=== PATIENT | male | born 1980 | race Caucasian/White ===

== ENCOUNTER 2019-12-11 01:07 | Observation (INO) | payer OTHER, SELFPAY ==
[2019-12-11] VITALS (15 sets, daily range): BP systolic 101–135; BP diastolic 71–99; PULSE 97–119; RESP 12–28; TEMP 36.5–36.7; O2SAT 95–100; BMI 24.5
--- NOTE | 2019-12-11 | ECHO_ITS ---
Patient Info Name: Bradley Velazquez Age: 39 years : 1980 Gender: Male Ht: 70 in Wt: 170 lbs BSA: 1.96 m2 HR: 115 bpm BP: 138 / 99 mmHg Heart Rhythm: Tachycardia, Sinus Rhythm Technical Quality: Excellent Exam Date: 12/11/2019 2:54 PM Exam Location: [facility] Card Pulmonary Patient Status: Inpatient Admit Date: 12/11/2019 Staff Ordering Physician: Irish Lantigua PA-C Methods Specialist Engineer: Mark Jensen RDCS Attending Provider: Irish Lantigua PA-C Referring Physician: Rhina LIZ; Exam Type: CA echo doppler color flow Study Info Indications I26.99 - Other pulmonary embolism without acute cor pulmonale Complete two-dimensional, color flow and Doppler transthoracic echocardiogram is performed. Strain analysis performed. History/Risk Factors Multiple pulmonary embolism; CHF, SOB, tachycardia, methamphetamine use. Summary 1. The left ventricle is moderately enlarged, with severe global hypokinesis though there was some sparing of the basal inferolateral wall. The measured ejection fraction 17% and the visual estimate is 15-20%. Global longitudinal strain is severely low at -3%. Grade 2 diastolic dysfunction is present. There is normal wall thickness. Spontaneous contrast is noted in the left ventricular cavity. 2. Right ventricular chamber dimension is moderately enlarged with by a moderate reduction of contractility. 3. Left atrial chamber dimension is severely enlarged. 4. Right atrial chamber dimension is mildly enlarged. 5. There is moderate mitral valve regurgitation. PISA was 0.7 cm. 6. There is moderate tricuspid valve regurgitation. 7. Moderate pulmonary hypertension, estimated pulmonary arterial systolic pressure is 60 mmHg. 8. Dilated inferior vena cava with <50% collapse upon inspiration consistent with significantly elevated right atrial pressure, 15 mmHg. 9. Sinus tachycardia. Left Ventricle Left ventricular chamber dimension is moderately enlarged. Left ventricular systolic function is severely reduced, estimated at 15-20%. There is no increased left ventricular wall thickness. Left ventricular septal wall motion is normal. The left ventricular diastolic function is grade II diastolic dysfunction. Global longitudinal strain is severely elevated at 3 %. Right Ventricle Right ventricular chamber dimension is moderately enlarged with by a moderate reduction of contractility. Right ventricular systolic function is reduced. Left Atria Left atrial chamber dimension is severely enlarged. Right Atria Right atrial chamber dimension is mildly enlarged. Aortic Valve The aortic valve is trileaflet. There is no aortic valve sclerosis. There is no aortic valve stenosis. There is no aortic valve regurgitation. Pulmonic Valve The pulmonic valve is normal. There is no pulmonic valve stenosis. There is trace pulmonic regurgitation. Mitral Valve The mitral valve has normal leaflets. There is no mitral valve stenosis. There is moderate mitral valve regurgitation. PISA was 0.7 cm. Tricuspid Valve The tricuspid valve leaflets are normal. There is no significant tricuspid valve stenosis. There is moderate tricuspid valve regurgitation. Moderate pulmonary hypertension, estimated pulmonary arterial systolic pressure is 60 mmHg. Pericardium/Pleural The pericardium appears normal. There is no pericardial effusion. Inferior Vena Cava Dilated inferior vena cava with <50% collapse upon inspiration consistent with significantly fuentes
--- NOTE | ~2019-12-11 | US_ITS ---
EXAMINATION: US venous doppler LE EXAM DATE: 12/11/2019 14:08 INDICATION: Bilateral leg pain. Pulmonary emboli. TECHNIQUE: Multiple grayscale, color flow and Doppler images of the lower extremity deep venous syste ms bilaterally were obtained and reviewed. There is no prior study for comparison. FINDINGS: RIGHT SIDE Common femoral: -------- Normal. Profunda femoral: ------- Normal. Femoral: Normal. Popliteal: Normal. Posterior tibial: --------- Normal. Peroneal: Normal. Gastrocnemius: Not visualized. Soleus: Not visualized. Greater saphenous: ----- Normal. Lesser saphenous: ------ Not visualized. LEFT SIDE Common femoral: -------- Normal. Profunda femoral: ------- Normal. Femoral: Normal. Popliteal: Not evaluated (status post above-knee amputation). Posterior tibial: ---------Not evaluated. Peroneal: Not evaluated. Gastrocnemius: Not evaluated. Soleus: Not evaluated. Greater saphenous: ----- Normal. Lesser saphenous: ------Not evaluated. IMPRESSION: 1. No evidence of lower extremity deep venous thrombosis bilaterally. Reviewed, dictated and finalized at location B.
--- NOTE | ~2019-12-11 | CT_ITS ---
EXAMINATION: CTA chest PE protocol DATE: 12/11/2019 03:36 INDICATION: Shortness of breath TECHNIQUE: Computed tomography (CT) pulmonary angiogram of the chest was performed with 100 mL Omnipa que-350 intravenous contrast. Additional 3D reconstructions utilizing coronal maximum intensity proje ction (MIP) were performed. Automated exposure control and iterative reconstruction technique were em ployed. The dose-length product was 376.93 mGy-cm. COMPARISON: None FINDINGS: Excellent contrast opacification of the pulmonary arteries. There is mild streak artifact from dense contrast in the superior vena cava and right atrium. Mild scattered respiratory motion artifact. Ther e are scattered subsegmental pulmonary emboli in the basilar segments of the bilateral lower lobes an d the superior segment of the left lower lobe. There are couple small peripheral segmental regions of consolidation such with the emboli in the bilateral lower lobes consistent with pulmonary infarcts. There are scattered groundglass opacities predominantly in the dependent lungs which could represent additional infarcts, atelectasis or less likely pneumonia. No pleural effusion or pneumothorax. Moder ate cardiomegaly without specific findings of right heart strain. Thoracic aorta is normal in caliber . No pathologically enlarged thoracic lymphadenopathy. Small amount of ascites in the upper abdomen. Mild diffuse soft tissue edema in the visualized mesentery and retroperitoneum, body wall and mediast inum. IMPRESSION: 1. A few scattered subsegmental pulmonary emboli with low clot burden and with small pulmonary infarc ts in the bilateral lower lobes. No right heart strain. 2. Moderate cardiomegaly. 3. Small amount of ascites in the abdomen along with mild diffuse soft tissue edema. Reviewed, dictated and finalized at location A. IMPRESSION: 1. A few scattered subsegmental pulmonary emboli with low clot burden and with small pulmonary infarcts in the bilateral lower lobes. No right heart strain. 2. Moderate cardiomegaly. 3. Small amount of ascites in the abdomen along with mild diffuse soft tissue e gayathri.
--- NOTE | 2019-12-11 01:38 | ECG_ITS ---
Measurements Intervals [place] Rate: 109 P: 45 KS: 128 QRS: -16 QRSD: 102 T: 117 QT: 362 QTc: 489 Interpretive Statements SINUS TACHYCARDIA POSSIBLE LEFT ATRIAL ENLARGEMENT DELAYED PRECORDIAL R/S TRANSITION NONSPECIFIC T-WAVE ABNORMALITY- LATERAL LEADS BASELINE ARTIFACT- V4-V6 ABNORMAL ECG Electronically Signed On 12-11-2019 6:54:40 CDT by Diogo Panda D.O.
[2019-12-11 03:00] LABS: Basophils Percent Auto 0.6 % (0.2-1.2); Eosinophils Absolute Auto 0.1 K/mm3 (0-0.3); Eosinophils Percent Auto 0.8 % (0-4.4); Hematocrit 37.4 % (42.0-52.0); Hemoglobin 12.2 g/dL (14.0-18.0); Immature Granulocyte Absolute 0.02 K/mm3 (0.00-0.031); Immature Granulocyte Percent A 0.3 % (0-0.5); Lymphocytes Absolute Auto 1.64 K/mm3 (0.9-3.2); Lymphocytes Percent Auto 25.4 % (18.3-44.2); Mean Corpuscular HGB Conc 32.6 g/dl (32-36); Mean Corpuscular Hemoglobin 27.2 pg (26-34); Mean Corpuscular Volume 83.5 fl (80-100); Mean Platelet Volume 9.7 fl (7.4-10.4); Monocytes Absolute Auto 0.5 K/mm3 (0.1-0.6); Monocytes Percent Auto 7.3 % (2.6-8.5); Neutrophils Absolute Auto 4.2 K/mm3 (1.3-6.7); Neutrophils Percent Auto 65.6 % (45.5-73.1); Platelet Count Result 278 k/mm3 (150-375); Red Blood Count 4.48 M/mm3 (4.6-6.20); Red Cell Distribution Width 17.3 % (11.5-14.5); White Blood Count 6.5 K/mm3 (4.5-10.0)
[2019-12-11 03:10] LABS: INR 1.2; Prothrombin Time 15.1 Seconds (11.1-14.7)
[2019-12-11 03:11] LABS: Partial Thromboplastin Time 26.3 SECONDS (22.3-36.8)
[2019-12-11 03:15] LABS: Blood Urea Nitrogen 21 mg/dL (9-20); Calcium 8.9 mg/dL (8.4-10.2); Carbon Dioxide 22 mmol/L (22-30); Chloride 105 mmol/L (98-107); Estimated Glomerular Filt Rate > 60; Glucose 145 mg/dL (75-110); Potassium 3.6 mmol/L (3.4-5.0); Sodium 137 mmol/L (137-145)
--- NOTE | 2019-12-11 04:25 | ED.SOB ---
HPI - SOB/Dyspnea General Chief Complaint: Shortness of Breath/Dyspnea Stated Complaint: sob x 1 month Time Seen by Provider: 12/11/19 01:58 History of Present Illness HPI Narrative: Patient is a 39-year-old male who presents the ER with shortness of breath. Reports he has been short of breath for months. Has history of pulmonary embolism for which he takes Coumadin. Reports he has not been taking his medications. Shortness of breath is worse with any type of exertion. He was at [facility] earlier today where he signed out AGAINST MEDICAL ADVICE. Patient reports mild increase in edema in his lower extremity. Related Data Home Medications Medication Instructions Recorded Confirmed No Home Medications 12/11/19 12/11/19 Allergies Allergy/AdvReac Type Severity Reaction Status Date / Time No Known Allergies Allergy Verified 12/11/19 01:35 Review of Systems Review of Systems: All systems reviewed & are unremarkable except as noted in HPI and below Constitutional: Constitutional: Denies chills, Denies fever(s) and Denies weakness ENT: Denies nasal congestion and Denies sore throat Cardiovascular: Cardiovascular: Denies chest pain Respiratory: Respiratory: Denies cough, Reports dyspnea and Denies wheezing Gastrointestinal: Gastrointestinal: Denies abdominal pain, Denies diarrhea, Denies nausea and Denies vomiting Integumentary/Breasts: Comments: Scabies for which she is treated himself PMFSH Past Medical History Medical History CVA (cerebral vascular accident) H/O CHF Non-Hodgkin lymphoma Osteomyelitis Pulmonary embolism Surgical History Surgical History Left above-knee amputee Social History Social History Gender identity (if verbalized by the patient): Female Exam Narrative: Exam Narrative: GENERAL: Chronically ill-appearing, well-nourished, and in no acute distress. HEAD: Normocephalic, atraumatic. ENT: Mucous membranes moist. CHEST: Clear to auscultation. No respiratory distress. HEART: Regular rate and rhythm. Normal peripheral pulses. ABDOMEN: Soft, nontender, nondistended. EXTREMITIES: Normal range of motion. 1+ edema. Left BKA SKIN: Warm, dry, scabies to upper extremities NEURO: Alert and oriented x3. PSYCH: Normal mood and affect. Course Course Emergency Course: Admit to hospitalist service. Will give Lovenox. Vital Signs Vital signs: Vital Signs Temperature 98.1 F 12/11/19 01:15 Pulse Rate 113 H 12/11/19 01:15 Respiratory Rate 25 H 12/11/19 01:15 Blood Pressure 128/98 H 12/11/19 01:15 Pulse Oximetry 97 12/11/19 01:15 Temperature 98.1 F 12/11/19 01:15 Pulse Rate 108 H 12/11/19 05:10 Respiratory Rate 23 H 12/11/19 05:10 Blood Pressure 131/91 H 12/11/19 05:10 Pulse Oximetry 98 12/11/19 05:10 MDM - SOB/Dyspnea Lab Data Result diagrams: 12/11/19 02:53 12/11/19 02:53 Labs: Lab Results 12/11/19 12/11/19 12/11/19 Range/Units 02:50 02:53 02:53 WBC 6.5 (4.5-10.0) K/mm3 RBC 4.48 L (4.6-6.20) M/mm3 Hgb 12.2 L (14.0-18.0) g/dL Hct 37.4 L (42.0-52.0) % MCV 83.5 (80-100) fl MCH 27.2 (26-34) pg MCHC 32.6 (32-36) g/dl RDW 17.3 H (11.5-14.5) % Plt Count 278 (150-375) k/mm3 MPV 9.7 (7.4-10.4) fl Immature Gran % (Auto) 0.3 (0-0.5) % Neut % (Auto) 65.6 (45.5-73.1) % Lymph % (Auto) 25.4 (18.3-44.2) % Delta % (Auto) 7.3 (2.6-8.5) % Eos % (Auto) 0.8 (0-4.4) % Baso % (Auto) 0.6 (0.2-1.2) % Lymph # (Auto) 1.64 (0.9-3.2) K/mm3 Delta # (Auto) 0.5 (0.1-0.6) K/mm3 Eos # (Auto) 0.1 (0-0.3) K/mm3 Baso # (Auto) 0.0 (0.0-0.1) K/mm3 Abs Immat Gran (auto) 0.02 (0.00-0.031) K/mm3 Absolute Neuts (auto) 4.2 (1.3-6.7) K/mm3 Absolute Nucleated RBC 0.0 (0.0-0.012) K/
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
[2019-12-11] MEDS: ENOXAPARIN 80 MG/0.8 ML SYRINGE 74 MG SUB-Q (05:10)
[2019-12-11 05:28] LABS: Ethanol < 10 mg/dL (<10)
[2019-12-11 05:42] LABS: Amphetamine Screen Urine Positive (Negative); Barbiturate Screen Urine Negative (Negative); Benzodiazepines Screen Urine Negative (Negative); Cannabinoid Screen Urine Negative (Negative); Cocaine Screen Urine Negative (Negative); Methadone Screen Urine Negative (Negative); Opiate Screen Urine Negative (Negative); Phencyclidine Screen Urine Negative (Negative)
--- NOTE | 2019-12-11 05:56 | PC.NURSE ---
This patient, Bradley Velazquez, was admitted to 2 Medical Room 260-01. Patient/family oriented to hospital policies and general routines including ID bracelet, bed and alarms, visiting hours, pain management, procedures, bathroom and other care routines, personal items, smoking policy, room service/diet, and visiting hours. Valuables list has been completed. Information on how to activate the Rapid Response Team has been discussed. Patient/Family are encouraged to report perceived risks to care and to ask questions if they do not understand what they are told or what they should do.
--- NOTE | 2019-12-11 06:26 | PC.NURSE ---
pt. uncooperative during assessment. Nurse repeatedly asked the patient to wake up and answer questions . Pt. denies any PMH.
[2019-12-11] MEDS: PERMETHRIN 5% CREAM 60 GM TUBE 1 APPLIC TOPICAL (09:29)
[2019-12-11] MEDS: LORAZEPAM INJ 2 MG/ML VIAL 0.5 MG IV PUSH (09:38)
--- NOTE | 2019-12-11 10:55 | PM.IMPN ---
Progress Note: A&P Assessment and Plan (1) Pulmonary embolism and infarction: Code(s): I26.99 - Other pulmonary embolism without acute cor pulmonale Status: Acute Assessment and Plan: Continue Lovenox and bridge with Coumadin. We will obtain LE doppler U/S. Will obtain echocardiogram to rule out right heart strain PRN bronchodialtors and pain control as needed. Telemetry shows normal sinus rhythm with a tachycardic rate at 101 beats per minute. Will continue Lovenox injections Q 12 and start Coumadin tonight. Will continue monitoring the patient's symptoms (2) Scabies: Code(s): B86 - Scabies Status: Acute Assessment and Plan: The nurse found the patient had with him a bottle of Permethrin topical that was empty Will administer another bottle of Permethrin topical for treatment of scabies. (3) Nonadherence to medical treatment: Code(s): Z91.19 - Patient's noncompliance with other medical treatment and regimen Status: Acute Assessment and Plan: The patient has been noncompliant with his medications. Patient's supposed to be on Coumadin for prior pulmonary embolisms in the past. (4) Non-Hodgkin lymphoma: Qualifiers: Lymphoma site: unspecified region Non-Hodgkin lymphoma type: unspecified type Qualified Code(s): C85.90 - Non-Hodgkin lymphoma, unspecified, unspecified site Code(s): C85.90 - Non-Hodgkin lymphoma, unspecified, unspecified site Status: Acute Assessment and Plan: stable. (5) Positive urine drug screen: Code(s): R82.5 - Elevated urine levels of drugs, medicaments and biological substances Status: Acute Assessment and Plan: Positive for amphetamines on arrival. Educated patient to quit using illegal drugs. (6) Anxiety: Code(s): F41.9 - Anxiety disorder, unspecified Status: Acute Assessment and Plan: This morning the patient was very anxious and hyperventilating. He was given Ativan IV 0.5 mg and now he is sleeping. Will hold this medication at this time until he is more awake and alert able to answer questions for me. Time Spent With Patient Time with patient: 25 - 35 minutes Subjective Date/time seen: 12/11/19 10:55 Interval history: Date of service 12/11/2019: The nurse had called me about the patient being extremely anxious, tachycardic, tachypneic and he was given IV Ativan dear 0.5 mg. Now, he is sleeping and will not wake up to answer any questions for me are open his eyes. Unable to obtain any history from the patient secondary to his mental status at this time since he is sleeping. Review of Systems Review of Systems: ROS unobtainable: Yes unobtainable due to mental status (Sleeping, will not wake up to answer questions) Exam Narrative: Exam Narrative: General: 39-year-old man laying flat in bed on his left side, intermittently snoring during examination. Appears comfortable. In no acute distress. Skin: Multiple small raised bumps throughout his bilateral arms, chest, legs. No erythema, drainage from wounds, or warmth noted. No jaundice or cyanosis. Good skin turgor. Neck: Full range of motion. Supple. Respiratory: Having intermittent apnea episodes, pulse ox ranged from 100% on room air to 90% on room air. Did not become hypoxic. Lungs are clear to auscultation bilaterally. No wheezing, rales or rhonchi. No bony chest wall tenderness. Cardiovascular: Tachycardic heart rate, regular rhythm without murmur. Lower extremities: Left hekby-xes-jeaf amputation. No lower extremity edema. Distal pulses are easily palpated. No calf tenderness to palpation. Gastrointestinal: The abdom
--- NOTE | 2019-12-11 14:50 | PC.NURSE ---
Spoke with patient regarding release of information to person of contact/family. Patient requests that no medical information be released to anyone including person of contact. Patient states that it is ok for nursing staff to tell person of contact he is here and he is ok .
--- NOTE | 2019-12-11 15:45 | PCRCNOTE ---
Pt refused ABG. Irish Lantigua PA-C notified.
--- NOTE | 2019-12-11 18:06 | PC.NURSE ---
Patient requesting to leave the unit to go outside and smoke at this time. Educated patient on the hospital policy about leaving the floor and the no smoking campus. Patient uncooperative and is stating I'm going outside to smoke one way or another. Someone will come get me. Educated patient on leaving AMA and the need to stay for care. Patient refusing to wear bus monitor at this time and states he will let us know when his ride is here to get him. Notified Yessica Cespedes RN. Bed alarm is activated and patient sitter outside of room. Call light placed within reach.
--- NOTE | 2019-12-11 20:42 | PC.NURSE ---
continues to refuse coumadin and lovenox. in shower at this time with tech outside door for safety. refuses to wear telemetry. sob with exertion.
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
--- NOTE | 2019-12-11 22:09 | PCDIET ---
[id number] trish bautista np informed that patient left ama
--- NOTE | 2019-12-11 22:47 | PC.NURSE ---
Patient left AMA after cussing at staff and throwing his water pitcher around 21:40. supervisor [employer] attempted to change his mind and stressed the need for him to stay and accept medical care. Patient was adamant on leaving but had no plan. Security followed patient to the bus stop. German was called to check on patient to ensure he had a plan of what he was going to do. Patient told police he had nobody to call for a ride. Patient was noted to be in mild distress and was taken via wheelchair to ED with the request he could be transferred to [place]. ED staff updated on patient already leaving [facility] and would need a new work-up.
--- NOTE | 2019-12-12 03:17 | PCRCNOTE ---
On 12/11/2019 PT apnea link not done pt has scabies.
--- NOTE | 2020-01-08 07:04 | PM.DS ---
DS: Admitting Diagnosis Admitting Diagnosis Admitting Diagnosis: Shortness of breath DS: Discharge Diagnosis Discharge Diagnosis (1) Pulmonary embolism and infarction: Code(s): I26.99 - Other pulmonary embolism without acute cor pulmonale Status: Acute Assessment and Plan: I was told by the hardener helper that the patient left against medial advice the evening of 12/11/2019. Continue Lovenox and bridge with Coumadin. LE doppler U/S showed No evidence of lower extremity deep venous thrombosis bilaterally. Echocardiogram showed The left ventricle is moderately enlarged, with severe global hypokinesis though there was some sparing of the basal inferolateral wall. The measured ejection fraction 17% and the visual estimate is 15-20%. Global longitudinal strain is severely low at -3%. Grade 2 diastolic dysfunction is present. Right ventricular chamber dimension is moderately enlarged with by a moderate reduction of contractility. Moderate pulmonary hypertension, estimated pulmonary arterial systolic pressure is 60 mmHg. Telemetry shows normal sinus rhythm with a tachycardic rate at 101 beats per minute. PRN bronchodialtors and pain control as needed. Will continue Lovenox injections Q 12 and start Coumadin. (2) Scabies: Code(s): B86 - Scabies Status: Acute Assessment and Plan: The nurse found the patient had with him a bottle of Permethrin topical that was empty Will administer another bottle of Permethrin topical for treatment of scabies. (3) Nonadherence to medical treatment: Code(s): Z91.19 - Patient's noncompliance with other medical treatment and regimen Status: Acute Assessment and Plan: The patient has been noncompliant with his medications. Patient's supposed to be on Coumadin for prior pulmonary embolisms in the past. (4) Non-Hodgkin lymphoma: Qualifiers: Non-Hodgkin lymphoma type: unspecified type Lymphoma site: unspecified region Qualified Code(s): C85.90 - Non-Hodgkin lymphoma, unspecified, unspecified site Code(s): C85.90 - Non-Hodgkin lymphoma, unspecified, unspecified site Status: Acute Assessment and Plan: stable. (5) Positive urine drug screen: Code(s): R82.5 - Elevated urine levels of drugs, medicaments and biological substances Status: Acute Assessment and Plan: Positive for amphetamines on arrival. Educated patient to quit using illegal drugs. (6) Anxiety: Code(s): F41.9 - Anxiety disorder, unspecified Status: Acute Assessment and Plan: This morning the patient was very anxious and hyperventilating. He was given Ativan IV 0.5 mg and now he is sleeping. Will hold this medication at this time until he is more awake and alert able to answer questions for me. DS: Summary Hospital Course Reason for hospitalization: The patient is a 39 year old man with history of PE on chronic anticoagulation with coumadin, LLE AKA and nonhodgkin's lymphoma, who presented with shortness of breath. Initial vitals showed, temp 98.1F, BP 128/98, HR tachycardic at 113, RR 25, O2 97% on RA. Initial labs showed, slight normocytic anemia, PT slightly elevated at 15.1, INR 1.2, PTT 26.3, Glucose elevated at 145, B[place] was 22691, Urine drug screen was positive for amphetamines. CTA Chest showed A few scattered subsegmental pulmonary emboli with low clot burden and with small pulmonary infarcts in the bilateral lower lobes. No right heart strain. Moderate cardiomegaly. Small amount of ascites in the abdomen along with mild diffuse soft tissue edema. He was admitted into the hospital to be placed on anticoagulation for PE and further w
== END 2019-12-11 21:45 | disposition left against medical advice (07) ==
LOC: ANHED 04:43 → ANH2MED 04:47
PROVIDERS: Admitting Provider Family Medicine; Emergency Provider Emergency Medicine; Visit Provider Physician Assistant
DX: I26.99 Other pulmonary embolism without acute cor pulmonale (principal); Z79.01 Long term (current) use of anticoagulants; Z89.612 Acquired absence of left leg above knee; C85.90 Non-Hodgkin lymphoma, unspecified, unspecified site; Z86.73 Personal history of transient ischemic attack (TIA), and cerebral infarction without residual deficits; I50.9 Heart failure, unspecified; Z91.19 Patient's noncompliance with other medical treatment and regimen; B86 Scabies; R82.5 Elevated urine levels of drugs, medicaments and biological substances; F41.9 Anxiety disorder, unspecified
CPT/HCPCS: 36415; 71275; 80048; 80307; 85025; 85610; 85730; 93005; 93306; 93970; 94640; 96372; 96374; 99285; A9270; G0378; G0379; J1650; J2060; Q9967

== ENCOUNTER 2019-12-11 22:38 | Emergency (ER) | payer OTHER, SELFPAY ==
--- NOTE | ~2019-12-11 | XR_ITS ---
EXAMINATION: XR chest 1V portable INDICATION: Shortness of breath TECHNIQUE: Portable AP chest at 1125 COMPARISON: 2325 hours FINDINGS: Cardiomegaly is noted. There is a diffuse interstitial pattern. No pleural effusion or pneu mothorax is identified. The visualized osseous structures are unremarkable. Surgical clips are noted in the left axilla. IMPRESSION: 1. Cardiomegaly with developing pulmonary edema. Reviewed, dictated and finalized at location A.
--- NOTE | 2019-12-11 22:41 | PC.NURSE ---
pt states he needs a drink RN informed pt he cannot have something to drink at this time. tests need to be ran and pt needs to see erP. Pt state he wants to leave. ED charge notified.
--- NOTE | 2019-12-11 22:43 | PC.NURSE ---
Pt trying to move wheelchair to vending machine. pt gets up w/ crutches and attempts to head to vending machine. pt states do you having any working machines. pt came back to wheelchair w/ crutches and lowers self safely on to knee. pt did not lose balance, fall or hit head.
--- NOTE | 2019-12-11 22:54 | ECG_ITS ---
Measurements Intervals [place] Rate: 109 P: 67 MS: 153 QRS: -29 QRSD: 104 T: 111 QT: 366 QTc: 493 Interpretive Statements SINUS TACHYCARDIA VENTRICULAR PREMATURE COMPLEX BORDERLINE R WAVE PROGRESSION, ANTERIOR LEADS BORDERLINE T WAVE ABNORMALITY- HIGH LATERAL LEADS ABNORMAL ECG Electronically Signed On 12-12-2019 7:32:22 CDT by Diogo Panda D.O.
[2019-12-11 23:01] VITALS: BP 136/101; PULSE 114; RESP 26; TEMP 36.6; O2SAT 99
[2019-12-11 23:15] LABS: Basophils Absolute Auto 0.1 K/mm3 (0.0-0.1); Basophils Percent Auto 0.7 % (0.2-1.2); Eosinophils Absolute Auto 0.2 K/mm3 (0-0.3); Eosinophils Percent Auto 2.3 % (0-4.4); Hematocrit 38.9 % (42.0-52.0); Hemoglobin 12.5 g/dL (14.0-18.0); Immature Granulocyte Absolute 0.03 K/mm3 (0.00-0.031); Immature Granulocyte Percent A 0.4 % (0-0.5); Lymphocytes Absolute Auto 1.77 K/mm3 (0.9-3.2); Lymphocytes Percent Auto 23.1 % (18.3-44.2); Mean Corpuscular HGB Conc 32.1 g/dl (32-36); Mean Corpuscular Hemoglobin 26.9 pg (26-34); Mean Corpuscular Volume 83.8 fl (80-100); Mean Platelet Volume 9.2 fl (7.4-10.4); Monocytes Absolute Auto 0.6 K/mm3 (0.1-0.6); Monocytes Percent Auto 7.6 % (2.6-8.5); Neutrophils Absolute Auto 5.1 K/mm3 (1.3-6.7); Neutrophils Percent Auto 65.9 % (45.5-73.1); Platelet Count Result 275 k/mm3 (150-375); Red Blood Count 4.64 M/mm3 (4.6-6.20); Red Cell Distribution Width 17.3 % (11.5-14.5); White Blood Count 7.7 K/mm3 (4.5-10.0)
[2019-12-11 23:26] LABS: INR 1.2; Prothrombin Time 15.1 Seconds (11.1-14.7)
[2019-12-11 23:27] LABS: Partial Thromboplastin Time 29.5 SECONDS (22.3-36.8)
[2019-12-11 23:31] LABS: Blood Urea Nitrogen 18 mg/dL (9-20); Calcium 8.8 mg/dL (8.4-10.2); Carbon Dioxide 21 mmol/L (22-30); Chloride 109 mmol/L (98-107); Estimated Glomerular Filt Rate > 60; Glucose 111 mg/dL (75-110); Potassium 3.4 mmol/L (3.4-5.0); Sodium 139 mmol/L (137-145)
[2019-12-11 23:43] LABS: NT Pro B Type Natriuretic Pept 14100 PG/ML (5-100); Troponin I 0.029 ng/mL (0.000-0.034)
--- NOTE | 2019-12-12 00:03 | ED.SOB ---
HPI - SOB/Dyspnea General Chief Complaint: Shortness of Breath/Dyspnea Stated Complaint: shortness of breath Time Seen by Provider: 12/11/19 22:52 History of Present Illness HPI Narrative: Patient is a 39-year-old male who presents the ER with shortness of breath. Patient has complex medical history. He is admitted to the hospital yesterday with subsegmental pulmonary emboli. He was given Lovenox and he was discharged his Coumadin inpatient. He had been noncompliant on an outpatient basis. Patient was on the inpatient side and was refusing his medication. He then wanted to have a cigarette so he cannot so he threw a picture of water in a telephone. Patient then left the hospital AGAINST MEDICAL ADVICE. Upon arriving at the bus stop patient was very weak. Police and security checked on the patient as well as the warehouse selector and patient was found to be in respiratory distress and wished to return to the hospital to be evaluated further. Is patient's desire to go to [facility] for further treatment and evaluation. 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 Patient still difficult to obtain a history from and dismissive of the ER physician. Related Data Home Medications Medication Instructions Recorded Confirmed alprazolam 0.25 mg PO BID 12/11/19 12/11/19 diphenhydramine HCl [Benadryl] 50 mg PO TID PRN 12/11/19 12/11/19 prednisone 10 mg PO DAILY 12/11/19 12/11/19 warfarin [Coumadin] 5 mg PO DAILY 12/11/19 12/11/19 Allergies Allergy/AdvReac Type Severity Reaction Status Date / Time No Known Allergies Allergy Verified 12/11/19 23:07 Review of Systems Review of Systems: All systems reviewed & are unremarkable except as noted in HPI and below Constitutional: Constitutional: Denies chills, Reports fatigue and Denies fever(s) ENT: Denies nasal congestion and Denies sore throat Cardiovascular: Cardiovascular: Denies chest pain, Denies rapid heart rate and Denies radiating jaw, neck or arm pain Respiratory: Respiratory: Denies cough, Reports dyspnea and Denies wheezing Gastrointestinal: Gastrointestinal: Denies abdominal pain, Denies nausea and Denies vomiting PMFSH Social History Social History Smoking packs per day: 1 Smoking cigarettes per day: 20.0 Years smoked: 29 Smoking pack-years: 29.00 Smoking status: Current every day smoker Tobacco type: cigarettes Second hand tobacco smoke exposure: No Alcohol intake: unknown Substance use type: unknown Gender identity (if verbalized by the patient): Male Spiritual care concerns: No Exam Narrative: Exam Narrative: GENERAL: Sleeping, well-nourished, and in no acute distress. HEAD: Normocephalic, atraumatic. ENT: Mucous membranes moist. CHEST: Clear to auscultation. Occasional tachypnea. No stridor audible wheezing. HEART: Tachycardic and regular normal peripheral pulses. ABDOMEN: Soft, nontender, nondistended. EXTREMITIES: Left AKA. No other extremity abnormality. SKIN: Warm, dry, lesions to arms that look like old scabies infection. NEURO: Alert and oriented x3. PSYCH: Normal mood and affect. Course Course Emergency Course: Discussed case with [facility] hospitalist Dr. Lopez. Discussed the patient's complex medical history as well as his noncompliance and eventful hospital stay. Patient is requesting to go to [facility] for further evaluation. Patient has been accepted for further treatment evaluation be transferred by ambulance. Patient is received Lasix for diuresis. Patient treated himself several days ago for scabies. Vital Signs Vital signs: Vital Signs Temperature 97.8 F 12/11/19 23:01 Pulse Rate 114 H 12/11/19 23:01 Respiratory Rate 26 H 12/11/19 23:01 Blood Pressure 136/101 H 12/11/19 23:01 Pulse Oximetry 99 12/11/19 23:01 Temperature 97.8 F 12/11/19 23:01 Pulse Rate 103 H 12/11
[2019-12-12 00:06] VITALS: BP 143/95; PULSE 116; RESP 31; O2SAT 29
[2019-12-12] MEDS: FUROSEMIDE INJ 40 MG/4 ML VIAL IV PUSH (00:06)
[2019-12-12 00:07] VITALS: O2SAT 95
[2019-12-12] MEDS: ENOXAPARIN 80 MG/0.8 ML SYRINGE 75 MG SUB-Q (01:28)
[2019-12-12 02:30] VITALS: BP 96/65; PULSE 103; RESP 20
--- NOTE | 2019-12-12 03:01 | PC.NURSE ---
Hand off report given to RANDALL Lin.
--- NOTE | 2019-12-12 03:12 | PC.NURSE ---
Report called at 0310 and given to nurse Calderon.
[2019-12-12 03:38] VITALS: BP 103/90; PULSE 96; RESP 14; TEMP 36.7; O2SAT 99
== END 2019-12-12 04:00 | disposition short-term general hospital (02) ==
PROVIDERS: Emergency Provider Emergency Medicine
DX: I26.99 Other pulmonary embolism without acute cor pulmonale (principal); I50.9 Heart failure, unspecified; R00.0 Tachycardia, unspecified; F17.210 Nicotine dependence, cigarettes, uncomplicated
CPT/HCPCS: 36415; 71045; 71275; 80048; 80307; 83880; 84484; 85025; 85610; 85730; 93005; 93306; 93970; 94640; 96372; 96374; 99285; A9270; G0378; G0379; J1650; J1940; J2060; Q9967